=== PATIENT | female | born 1950 | race Two or more races ===

== ENCOUNTER 2022-04-28 13:58 | Emergency (ER) | payer OTHER ==
[~2022-04-28] VITALS: Ht 162.6 cm; Wt 50.8 kg
[2022-04-28] MEDS ORDERED: CARVEDILOL25 MG PO (14:16)
[2022-04-28] MEDS ORDERED: ENTRESTO 24 MG1 EACH PO (14:16)
[2022-04-28] MEDS ORDERED: LASIX20 MG PO (14:17)
[2022-04-28] MEDS ORDERED: ALDACTONE25 MG PO (14:19)
[2022-04-28] MEDS ORDERED: XARELTO20 M1 PO (14:19)
[2022-04-28] MEDS ORDERED: SIMVASTATIN40 MG PO (14:19)
[2022-04-28] MEDS ORDERED: ZYLOPRIM100 M1 PO (14:20)
[2022-04-28] MEDS ORDERED: METFORMIN HCL500 MG PO (14:20)
[2022-04-28] MEDS ORDERED: ALLERGY RELIEF10 M3 PO (14:21)
== END 2022-04-28 18:31 | disposition home or self-care (01) ==
LOC: ER 13:58
DX: R10.13 Epigastric pain (principal); Z88.6 Allergy status to analgesic agent; Z85.9 Personal history of malignant neoplasm, unspecified; E11.9 Type 2 diabetes mellitus without complications; Z79.84 Long term (current) use of oral hypoglycemic drugs; I10 Essential (primary) hypertension